=== PATIENT | female | born 1960 | race Caucasian/White ===

== ENCOUNTER 2020-06-16 15:00 | Outpatient (REF) | payer SELFPAY ==
[2020-06-19 08:55] LABS: SARS-CoV-2 RNA Not Detected (NotDetected); SARS-CoV-2 RNA Source Nasal/Nares
== END 2020-06-16 15:20 ==
LOC: LBN 15:00
PROVIDERS: Visit Provider Nurse Practitioner Adult Health
DX: Z11.59 Encounter for screening for other viral diseases (principal)
CPT/HCPCS: U0003

== ENCOUNTER 2020-06-28 09:19 | Emergency (ER) | payer MEDICARE, BC, MEDICAID, SELFPAY ==
[2020-06-28 09:23] VITALS: BP 124/76; PULSE 113; RESP 20; TEMP 36; O2SAT 95
--- NOTE | 2020-06-28 09:29 | ED.GENADUL_ITS ---
Discharge Plan Disposition Patient Disposition: HOME Condition: Stable Discharge Details Clinical Impression: Encounter for medical clearance for patient hold Primary Care Provider: Maame Pineda ED Provider: Lizzy Moya Discharge Instructions Instructions: Anxiety (ED) Additional Instructions: Follow up with primary care provider in 3-5 days. Return to ED sooner if any worsening or concerns. Increase oral fluids. You were seen in the ED today for a medical clearance. At this time you are denying any suicidal ideation or homicidal ideation. This episode was caused by a situation where he became upset. Please return to the ED for any worsening symptoms or concerns. Medical Decision Making At this time there is no medical necessity for patient to be seen here in the emergency room. Medical screening exam was done and assessment. Patient is denying any suicidal ideations or homicidal ideations and denies any intent to harm herself or others. Patient discharged and will be transported back to [facility]. HPI General Mode of arrival: EMS . Date/Time Provider Initiated Documentation: 06/28/20 09:25 . Limitations to Documentation: no limitations . Information obtained by: patient and EMS . HPI Narrative: 59-year-old female presents to the ER via EMS due to report of patient making suicidal comments and altercation with [facility]. Patient is alert and oriented x4 upon arrival. She denies having any suicidal ideations or homicidal ideation. She reports that she had a phone call from her father which upset her which precipitated the event at the [facility]. EMS was called prior to her patient refusal to come into the ER which we reported there was no medical reason for her to be transported if she was alert and oriented and denied any thoughts of self-harm. EMS was strongly encouraged to bring patient by police. Related Data Allergies Allergy/AdvReac Type Severity Reaction Status Date / Time Sulfa (Sulfonamide Allergy Unverified 06/28/20 09:29 Antibiotics) General Stated Complaint: PsychEval JAMES: 2 Review of Systems Narrative: Constitutional: Negative for weight loss, alert and oriented, well groomed, normal body habitus, appears comfortable. HEENT: Denies trauma, headaches, blurry vision, nasal discharge, sore throat, trouble swallowing. Chest: Denies chest pain, palpitations, irregular rhythm, hypertension. Respiratory: Denies Shortness of breath, cough, hemoptysis. GI: Denies abdominal pain, nausea, vomiting, diarrhea, constipation. : Denies dysuria, hematuria, flank pain, rectal bleeding. Neuro: Denies dizziness, blurry vision, weakness, syncope, headache or facial numbness. Hematologic: Denies easy bruising, intolerance to heat or cold, hair loss. All systems reviewed & are unremarkable except as noted in HPI and below [facility] Social History Smoking risk assessment performed?: No Exam Narrative Exam Narrative: Constitutional: Alert and oriented x3. Appears stated age. Normal body habitus. Head: Normocephalic, no trauma. Eyes: Pupils PERRLA, Red reflex noted, EOM's intact. Eyelids symmetrical without lesions, discharge, or swelling. ENT: Bilateral TM's WNL, External ear normal to inspection, no mastoid TTP, swelling, or erythema, Nasal turbinates WNL, no nasal discharge. Normal dentition, Posterior pharynx WNL, no exudate. Chest: RRR, Normal S1, S2, distal pulses intact. Resp: Lungs clear to auscultation bilaterally, no wheezes, rales, or rhonchi. Musculoskeletal: Normal gait, 5/5 strength to all four extremities. Skin: No suspicious rashes or lesions. Capillary refill less than 2 sec. Neurologic: Cranial nerves II-XII intact. Alert and oriented x 3. DTR's intact. Hematologic/Lymphatic: No ecchymosis, no lymphadenopathy. Psych Mood: irritable mood Attitude: cooperative Thought Process: normal Thought Content: no hallucinations and suicidality Insight: insight good Judgment: judgment good Other: Patient is tearful when asked about why she was at [facility] she is denying any suicide thoughts or homicidal thoughts at this time. Course Vital Signs Vital signs: Vital Signs Temperature 36 C L 06/28/20 09:23 Temperature 36 C L 06/28/20 09:23 Temperature Source Skin 06/28/20 09:23 Respiratory Effort Non-Labored 06/28/20 09:23 Pain Level 0 06/28/20 09:23
== END 2020-06-28 09:34 | disposition home or self-care (01) ==
PROVIDERS: Emergency Provider Registered Nurse Emergency; PCP Nurse Practitioner Family
DX: R45.4 Irritability and anger (principal); F43.0 Acute stress reaction; Z71.1 Person with feared health complaint in whom no diagnosis is made
CPT/HCPCS: 99285; 99283